=== PATIENT | female | born 1995 | race Caucasian/White ===

== ENCOUNTER 2020-07-31 07:30 | Inpatient (IN) ==
[2020-07-31] MEDS ORDERED: OXYTOCIN 30 UNITS/500 ML BAG IV PRN ×2 (07:46→08:17)
[2020-07-31 08:02] LABS: Hematocrit (blood only) 33.8 % (37-47); Hemoglobin 11.2 g/dL (12.0-16.0); Mean Corpuscular Hgb Conc 33.1 g/dL (32-36); Mean Corpuscular Volume 87.6 fL (80-100); Mean Platelet Volume 10.7 fL (7.4-10.4); Platelet Count 197 K/uL (130-400); RDW Coefficient of Variation 13.6 % (11.5-14.5); RDW Standard Deviation 43.4 fL (36.4-46.3); Red Blood Count 3.86 M/uL (4.2-5.4); White Blood Count 6.73 K/uL (4.8-10.8)
[2020-07-31] MEDS: LACTATED RINGER'S 1,000 ML IV PRN ×4 (09:10→22:30)
--- NOTE | 2020-07-31 09:36 | History & Physical Report ---
Date of Service July 31, 2020 Assessment & Plan Admission and Anticipated Discharge Date Admission Date: July 31, 2020 IUP at 40 weeks for IOL cervical balloon successfully placed pitocin induction per protocol epidural analgesia when requested anticipate vaginal History of Present Illness Primary Care Provider: NO PCP Patient is a 25 yo white female EDC 07/31/20 who presents at 40 weeks for induction of labor. has been complicated by hypothyroidism and history of Lupus. She also appeared to have a potential cornual early in gestation along with a viable IUP. The cornual cystic area ultimately resolved. GBS negative/ Blood type- A positive Allergies Allergy/AdvReac Type Severity Reaction Status Date / Time Iodinated Contrast Media Allergy Anaphylaxis Verified 07/31/20 08:32 Home Medications Medication Instructions Recorded Confirmed Type prenat.vits,bo,vez-[id number]-kvqds 1 tab PO DAILY 12/07/19 07/31/20 History levothyroxine 125 mcg tablet 125 mcg PO DAILY 02/19/20 07/31/20 History Patient History Medical History Abdominal pain Anemia Date of last menstrual period (LMP) unknown Hypothyroid Lupus Surgical History H/O elbow surgery S/P carpal tunnel release S/P tonsillectomy Family History Mother Autoimmune disease Factor V Leiden Grandfather (Maternal) Diabetes Social History Smoking Status: Never smoker Hx Alcohol Use: No Hx Substance Use: No Preferred Language: Ukrainian Beliefs That Will Affect Care: None marital status: Single Current Living Situation: Family Other Information That Helps Us Care for You: Yes Feels Safe at Home: Yes Safety Concerns: Feels Safe At This Time Assistive Devices: None Review of Systems All systems reviewed & are unremarkable except as noted in HPI & below Physical Exam Constitutional: WD/WN, vitals as above Respiratory: normal respiratory effort, lungs clear to auscultation Cardiovascular: RRR, no murmur, no edema Gastrointestinal (Abdomen): normal bowel sounds, soft, nontender, no he patosplenomegaly Psychiatric: A+Ox3, euthymic affect Genitourinary: OB Exam Abdomen: + vertex, + estimated weight (7-8 pounds) and + irregular contractions Manual OB Exam: + cervical dilation 1 cm, + cervical effacement 50% and + station (soft/ midposition) -2 OB Exam Monitor Tracing: + external FHT monitor used, + external uterine monitor used, + category I and + normal FHT variability cervical balloon inserted into the cervical canal without difficulty. Balloon filled with 40cc water and then placed on traction. the catheter was then attached to right thigh. Results & Data ([facility]) Vital Signs (Past 12 Hours) Vital Signs Temp Pulse Resp BP 07/31/20 07:47 98.2 F 86 20 120/67 07/31/20 07:44 86 120/67 Coding Level of Care Code None CPT Codes Misx Procedure Codes - 08399 Placement of cervical dilator: 35578 Placement of cervical dilator ([id number])
[2020-07-31] MEDS ORDERED: BUPIVACAINE 0.25% 30 ML VIAL ONE (19:54)
[2020-07-31] MEDS ORDERED: SODIUM CHLORIDE 0.9% INJ 10 ML VIAL ONE (19:54)
[2020-07-31] MEDS ORDERED: ePHEDrine sulfate 50 MG/ML AMP ONE (19:54)
[2020-07-31] MEDS ORDERED: fentaNYL citrate 100 MCG/2 ML VIAL ONE (19:54)
[2020-07-31] MEDS ORDERED: fentaNYL 2MCG/ML ROPIVACAINE 1.25MG/ML 100 ML BAG EPI ONE (19:55)
[2020-07-31] MEDS ORDERED: fentaNYL 2MCG/ML ROPIVACAINE 1.25MG/ML 100 ML BAG EPI PRN (19:59)
[2020-07-31] MEDS ORDERED: diphenhydrAMINE 50 MG/ML VIAL IV PRN (19:59)
[2020-07-31] MEDS ORDERED: ePHEDrine sulfate 50 MG/ML AMP IV PRN (19:59)
[2020-07-31] MEDS ORDERED: NALOXONE HCL 1 MG in SODIUM CHLORIDE 0.9% 1000ML 1,000 ML IV PRN (19:59)
[2020-07-31] MEDS ORDERED: ONDANSETRON INJ 2 MG/ML 2 ML VIAL IV PRN (19:59)
[2020-07-31] MEDS ORDERED: NALOXONE HCL 0.4 MG/1 ML VIAL/CARP IV PRN (19:59)
--- NOTE | 2020-07-31 20:05 | Anesthesiology Consultation ---
Date of Service July 31, 2020 Assessment & Plan Chart Review Chart Review: Patient NOT seen in Pre Admission Testing and Acceptable Risk for Labor Epidural Consults Requested none ASA ASA2 Proposed Anesthesia Anesthesia Type: Labor Epidural and CSE Risk / Benefits Reviewed With: PT / POA / Parent / Guardian, Accepts Plan and Informed Consent Obtained History Height/Weight Height: 5 ft 2 in Weight: 82.1 kg Allergies Allergy/AdvReac Type Severity Reaction Status Date / Time Iodinated Contrast Media Allergy Anaphylaxis Verified 07/31/20 08:32 Medications Home Medications Medication Instructions Recorded Confirmed Last Taken prenat.vits,bo,jca-hjcp-emcgf 1 tab PO DAILY 12/07/19 07/31/20 07/31/20 06:00 levothyroxine 125 mcg tablet 125 mcg PO DAILY 02/19/20 07/31/20 07/31/20 06:00 Active Medications Generic Name Dose Route Start Last Admin Trade Name Freq PRN Reason Stop Dose Admin Lactated Ringer's 1,000 mls @ 125 mls/hr 07/31/20 07:46 07/31/20 19:02 Lr IV 08/02/20 07:45 125 mls/hr .Q8H PRN Infusion L&D Protocol Protocol Oxytocin 30 units in 500 mls @ 16 mls/hr 07/31/20 08:17 07/31/20 19:02 Pitocin IV 08/02/20 08:16 0.96 units/hr .Q24H PRN 16 mls/hr Labor Induction/Augmentation Titration Protocol 0.96 UNITS/HR Past Medical History Medical History Abdominal pain Anemia Date of last menstrual period (LMP) unknown Hypothyroid Lupus Exercise / Class Metabolic Activity II 4-5 Yardwork/Stairs/Walk up hill Past Family History Family History Mother Autoimmune disease Factor V Leiden Grandfather (Maternal) Diabetes Past Surgical History Surgical History H/O elbow surgery S/P carpal tunnel release S/P tonsillectomy Past Anesthesia History No Hx of Anesthesia Complications and No Family Hx of Anesthesia Complications Social History Smoking Status: Never smoker Hx Alcohol Use: No Hx Substance Use: No substance use type: does not use Review of Systems no chest pain or sob Physical Exam Vital Signs Last Vital Signs Temp 36.4 C L 07/31/20 19:05 Pulse 90 07/31/20 20:04 Resp 20 07/31/20 19:05 BP 123/71 07/31/20 19:02 ENMT Mouth: no TMJ abnormality Thyromental Distance: > or= 3.5 Finger Breadths Mallampati Class: II Neck normal visual inspection Respiratory normal respiratory effort Auscultation: lungs clear to auscultation bilaterally Cardiovascular Rate/Rhythm: regular rate and regular rhythm Musculoskeletal Spine: normal cervical ROM Neurologic moves all extremities Psychiatric Orientation: alert and oriented x 3 Testing Laboratory Results 07/31/20 07:53
[2020-08-01] MEDS ORDERED: HYDROCORTISONE ACETATE 25 MG SUPP PR PRN (00:39)
[2020-08-01] MEDS ORDERED: bisacodyL 10 MG SUPP PR PRN (00:39)
[2020-08-01] MEDS ORDERED: oxyCODONE/ACETAMINOPHEN 5mg/325mg TAB PO PRN (00:39)
[2020-08-01] MEDS ORDERED: DIPHTHERIA/TETANUS/PERTUSSIS 0.5 ML SYR/VIAL IM ONE (00:39)
[2020-08-01] MEDS ORDERED: OXYTOCIN 30 UNITS/500 ML BAG IV PRN (00:39)
[2020-08-01] MEDS ORDERED: SUPERCREAM 0.870% 15 GM JAR EXT PRN (00:39)
[2020-08-01] MEDS ORDERED: BENZOCAINE 20% AER SPR 82.5 GM CAN EXT PRN (00:39)
[2020-08-01] MEDS ORDERED: ACETAMINOPHEN 325 MG TAB PO PRN (00:39)
--- NOTE | 2020-08-01 00:49 | Delivery Summary ---
Vaginal Delivery Summary Date of Service August 01, 2020 Patient is a 25-year-old 2 para 1-0-0-1 white female who presented for induction on her due date because of a history of lupus. She received a cervical balloon and Pitocin augmentation of her contractions. Membranes were ruptured for clear fluid at 4 cm dilation. She then requested epidural analgesia which was effective. She progressed to full dilation and pushed effectively over intact perineum for delivery of a viable male infant. After the head was delivered the rest of the delivered easily and was placed on the mother's abdomen for further attention and drying. The infant was vigorous and moving all 4 limbs. Placenta was expressed intact with a three-vessel cord. bleeding was controlled with dilute Pitocin. Estimated blood loss is 300 cc. Mother and are doing well after delivery. Vaginal Delivery Summary [facility] Vaginal Delivery Charge Delivery Type Details: [facility]
[2020-08-01] MEDS: LEVOTHYROXINE SODIUM 125 MCG TABLET PO SCH (06:27)
--- NOTE | 2020-08-01 07:39 | Obstetrical Progress Note ---
Date of Service August 01, 2020 Assessment & Plan (1) Encounter for care and examination after delivery: satisfactory course continue current care plan Subjective Ambulation: ambulating normally Voiding: no voiding problems Passing Gas:: Yes Diet Tolerance:: regular diet Lochia:: Moderate Feeding Type:: breast feeding passed small clot this am otherwise lochia moderate Physical Exam Constitutional WD/WN, vitals as above Psychiatric A+Ox3, euthymic affect Genitourinary OB Exam Abdomen: + fundal height Fundus: + firm and + relation to umbilicus (at U) Results & Data ([facility]) Vital Signs (Past 12 Hours) Vital Signs Temp Pulse Pulse Resp BP BP Pulse Ox 08/01/20 03:00 99.9 F H 116 H 20 118/73 97 08/01/20 02:27 133 H 106/70 08/01/20 02:17 111 H 118/63 08/01/20 02:02 120 H 117/70 08/01/20 01:47 114 H 110/64 08/01/20 01:32 112 H 109/59 L 08/01/20 01:17 112 H 119/66 08/01/20 01:02 104 H 107/57 L 08/01/20 00:47 121 H 118/56 L 08/01/20 00:34 114 H 100 08/01/20 00:32 104 H 117/56 L 08/01/20 00:29 105 H 100 08/01/20 00:24 115 H 100 08/01/20 00:19 137 H 83 L 08/01/20 00:14 114 H 94 08/01/20 00:09 109 H 100 08/01/20 00:06 100 H 128/77 87 L 08/01/20 00:04 96 H 100 07/31/20 23:59 105 H 100 07/31/20 23:58 98 H 93 07/31/20 23:54 95 H 100 07/31/20 23:51 96 H 120/65 07/31/20 23:50 105 H 91 07/31/20 23:49 100 H 100 07/31/20 23:44 99 H 100 07/31/20 23:39 95 H 100 07/31/20 23:36 92 H 126/69 07/31/20 23:35 100 H 92 07/31/20 23:34 91 H 100 07/31/20 23:29 89 100 07/31/20 23:24 97 H 99 07/31/20 23:22 92 H 120/72 07/31/20 23:19 88 100 07/31/20 23:14 87 98 07/31/20 23:09 84 99 07/31/20 23:06 93 H 113/73 07/31/20 23:04 92 H 97 07/31/20 23:00 18 07/31/20 22:59 84 100 07/31/20 22:54 85 99 07/31/20 22:52 86 111/68 07/31/20 22:49 88 98 07/31/20 22:44 93 H 99 07/31/20 22:39 84 97 07/31/20 22:37 93 H 112/71 07/31/20 22:34 91 H 98 07/31/20 22:29 100 H 99 07/31/20 22:24 80 99 07/31/20 22:21 88 122/67 07/31/20 22:19 106 H 99 07/31/20 22:14 86 98 07/31/20 22:09 82 98 07/31/20 22:07 79 116/67 07/31/20 22:04 86 97 07/31/20 21:59 94 H 98 07/31/20 21:54 94 H 99 07/31/20 21:52 82 116/64 07/31/20 21:49 90 98 07/31/20 21:44 80 96 07/31/20 21:41 90 88/53 L 07/31/20 21:39 79 96 07/31/20 21:38 88 81/49 L 07/31/20 21:34 85 96 07/31/20 21:30 18 07/31/20 21:29 85 98 07/31/20 21:24 73 97 07/31/20 21:22 100 H 94/50 L 07/31/20 21:19 91 H 98 07/31/20 21:15 18 07/31/20 21:14 96 H 98 07/31/20 21:09 92 H 98 07/31/20 21:06 99 H 104/67 07/31/20 21:04 97 H 98 07/31/20 21:00 97.9 F 18 07/31/20 20:59 104 H 98 07/31/20 20:54 104 H 99 07/31/20 20:49 110 H 98 07/31/20 20:45 18 07/31/20 20:44 104 H 97 07/31/20 20:39 112 H 98 07/31/20 20:36 120 H 114/67 07/31/20 20:34 105 H 112/69 98 07/31/20 20:30 18 07/31/20 20:29 114 H 98 07/31/20 20:28 111 H 116/67 07/31/20 20:26 112 H 109/61 07/31/20 20:24 99 H 114/64 98 07/31/20 20:22 96 H 122/67 07/31/20 20:20 97 H 117/68 07/31/20 20:19 93 H 98 07/31/20 20:18 100 H 108/78 07/31/20 20:14 108 H 99 07/31/20 20:09 105 H 100 07/31/20 20:08 108 H 92 07/31/20 20:04 90 98
--- NOTE | 2020-08-01 08:56 | Anesthesia Procedure Note ---
Date of Service August 01, 2020 Anesthesia Post Epidural Note Vital Signs Vital Signs: Temp Pulse Resp BP Pulse Ox 37.7 C H 116 H 20 118/73 97 08/01/20 03:00 08/01/20 03:00 08/01/20 03:00 08/01/20 03:00 08/01/20 03:00 Notes Mental Status: alert / awake / arousable and participated in evaluation Nausea / Vomiting: adequately controlled Pain: adequately controlled Airway Patency, RR, SpO2: stable & adequate BP & HR: stable & adequate Hydration State: stable & adequate Neuraxial Anesthesia: was administered and sensory block is resolving Anesthetic Complications: no major complications apparent Epidural: Removed without complications and With tip intact
[2020-08-01] MEDS: DOCUSATE SODIUM 100 MG CAP PO SCH ×2 (09:20→20:22)
[2020-08-01] MEDS: IBUPROFEN 600 MG TAB PO PRN ×3 (09:20→20:22)
[2020-08-01] MEDS: PRENATAL VITAMIN 1 TAB PO SCH (09:21)
[2020-08-02] MEDS: LEVOTHYROXINE SODIUM 125 MCG TABLET PO SCH (06:11)
--- NOTE | 2020-08-02 06:15 | Obstetrical Progress Note ---
Date of Service August 02, 2020 Assessment & Plan (1) Encounter for care and examination after delivery: D/C instructions reviewed, ready for home today. Subjective Ambulation: ambulating normally Voiding: no voiding problems Passing Gas:: Yes Diet Tolerance:: regular diet Lochia:: Small Feeding Type:: breast feeding Physical Exam Constitutional WD/WN, vitals as above Eyes PERRL, conjunctivae normal, anicteric sclerae Neck normal visual inspection Respiratory normal respiratory effort and able to speak in complete sentences; no respiratory distress and no labored breathing Cardiovascular Rate/Rhythm: regular rate and regular rhythm Extremities: no edema Chest (Breasts) Chest: normal inspection of chest Gastrointestinal (Abdomen) Inspection/Auscultation: abdomen normal to inspection Soft, postgravid Psychiatric A+Ox3, euthymic affect Genitourinary OB Exam Abdomen: + fundal height Fundus: + firm and + relation to umbilicus (fundus just below umbilicus); not tender Results & Data ([facility]) Vital Signs (Past 12 Hours) Vital Signs Temp Pulse Resp BP Pulse Ox 08/01/20 22:55 97.9 F 72 16 113/73 98 08/01/20 19:22 98.2 F 68 16 106/68 98
[2020-08-02 07:23] LABS: Hematocrit (blood only) 29.7 % (37-47); Hemoglobin 9.7 g/dL (12.0-16.0); Mean Corpuscular Hgb Conc 32.7 g/dL (32-36); Mean Corpuscular Volume 85.8 fL (80-100); Mean Platelet Volume 10.9 fL (7.4-10.4); Platelet Count 212 K/uL (130-400); RDW Coefficient of Variation 13.9 % (11.5-14.5); RDW Standard Deviation 43.1 fL (36.4-46.3); Red Blood Count 3.46 M/uL (4.2-5.4); White Blood Count 12.41 K/uL (4.8-10.8)
[2020-08-02] MEDS: DOCUSATE SODIUM 100 MG CAP PO SCH (09:00)
[2020-08-02] MEDS: PRENATAL VITAMIN 1 TAB PO SCH (09:00)
[2020-08-02] MEDS ORDERED: bisacodyL 5 MG TABEC PO SCH (20:00)
== END 2020-08-02 11:33 | disposition home or self-care (01) | DRG 807 ==
LOC: 4S1 07:30 → 4S2 08-01 03:06